=== PATIENT | female | born 1985 | race Caucasian/White ===

== ENCOUNTER → 2020-05-18 | Outpatient (CLI) | payer OTHER ==
[~2020-05-18] MED LIST: BUPRENORPHIN-N1 EACH PO; CELEXA40 MG PO; CLARITIN10 M2 PO; FAMOTIDINE20 MG PO; HYDROXYZINE HCL25 MG PO; KEFLEX CAP 250250 MG PO; KEPPRA1000 MG PO; PEPCID40 MG PO; PHENERGAN 12.12.5 M1 PO; PHENERGAN 25 MG25 M1 PO; PREDNISONE20 MG PO
[2020-05-18 14:05] LABS: HEMOGLOBIN 15.2 gm/dl (12.3-15.3); RED BLOOD COUNT 5.19 M/UL (4.00-5.10); WHITE BLOOD COUNT 7.8 K/UL (4.5-11.0)
[2020-05-18 14:46] LABS: BUN/CREATININE RATIO 12 (0-10)
== END ==
LOC: OPSV2 12:30
PROVIDERS: Surgery
DX: Z01.818 Encounter for other preprocedural examination (principal); R94.31 Abnormal electrocardiogram [ECG] [EKG]
CPT/HCPCS: 71046; 80053; 81001; 85025; 85610; 85730; 86850; 86900; 86901; 93005

== ENCOUNTER → 2020-05-19 | Day surgery (SDC) | payer OTHER | END | disposition home or self-care (01) | LOC: OR 06:09 | PROVIDERS: Surgery | PROC: 00HE0MZ Insertion of Neurostimulator Lead into Cranial Nerve, Open Approach (ICD-10-PCS; principal; 2020-05-19 07:30) | DX: G40.909 Epilepsy, unspecified, not intractable, without status epilepticus (principal); K21.9 Gastro-esophageal reflux disease without esophagitis; E78.5 Hyperlipidemia, unspecified; K76.0 Fatty (change of) liver, not elsewhere classified; E11.9 Type 2 diabetes mellitus without complications; F41.9 Anxiety disorder, unspecified; E66.01 Morbid (severe) obesity due to excess calories; Z88.6 Allergy status to analgesic agent; Z86.711 Personal history of pulmonary embolism; Z79.891 Long term (current) use of opiate analgesic; Z79.899 Other long term (current) drug therapy; Z20.822 Contact with and (suspected) exposure to COVID-19; Z88.8 Allergy status to other drugs, medicaments and biological substances; Z91.018 Allergy to other foods | CPT/HCPCS: 82962; 83036; C1767; C1778; J0690; J1580; J2001; J2250; J2405; J2704; J2710; J3010; J7120 ==

== ENCOUNTER → 2020-07-07 | Outpatient (CLI) | payer OTHER | LOC: WCC 13:30 | DX: T81.31XA Disruption of external operation (surgical) wound, not elsewhere classified, initial encounter (principal); E11.9 Type 2 diabetes mellitus without complications; G40.909 Epilepsy, unspecified, not intractable, without status epilepticus; F41.9 Anxiety disorder, unspecified | CPT/HCPCS: 97605 ==

== ENCOUNTER → 2020-07-18 | Outpatient (CLI) | payer OTHER | LOC: WCC 15:08 | DX: T81.31XD Disruption of external operation (surgical) wound, not elsewhere classified, subsequent encounter (principal); L08.9 Local infection of the skin and subcutaneous tissue, unspecified; G40.419 Other generalized epilepsy and epileptic syndromes, intractable, without status epilepticus; E11.628 Type 2 diabetes mellitus with other skin complications; F42.4 Excoriation (skin-picking) disorder; Z96.82 Presence of neurostimulator | CPT/HCPCS: G0463 ==

== ENCOUNTER → 2020-07-25 | Outpatient (CLI) | payer OTHER | LOC: WCC 15:12 | DX: E66.01 Morbid (severe) obesity due to excess calories (principal); E11.628 Type 2 diabetes mellitus with other skin complications; F42.4 Excoriation (skin-picking) disorder; F42.9 Obsessive-compulsive disorder, unspecified; L08.9 Local infection of the skin and subcutaneous tissue, unspecified; Z96.82 Presence of neurostimulator; G40.419 Other generalized epilepsy and epileptic syndromes, intractable, without status epilepticus | CPT/HCPCS: G0463 ==

== ENCOUNTER 2021-11-16 16:56 | Observation (INO) | payer OTHER ==
[~2021-11-16] VITALS: Ht 167.6 cm; Wt 133.4 kg
[~2021-11-16 16:56] MED LIST changes: -KEPPRA1000 MG PO; +KEPPRA750 MG PO
[2021-11-16 17:43] LABS: HEMOGLOBIN 13.9 gm/dl (12.3-15.3); RED BLOOD COUNT 4.52 M/UL (4.00-5.10); WHITE BLOOD COUNT 7.9 K/UL (4.5-11.0)
[2021-11-16 18:04] LABS: BUN/CREATININE RATIO 12 (0-10)
[2021-11-17 05:09] LABS: HEMOGLOBIN 13.3 gm/dl (12.3-15.3); RED BLOOD COUNT 4.39 M/UL (4.00-5.10); WHITE BLOOD COUNT 7.1 K/UL (4.5-11.0)
[2021-11-17 06:15] LABS: BUN/CREATININE RATIO 11 (0-10)
[2021-11-17] MEDS ORDERED: LEVOTHYROXINE25 MCG PO (11:48)
[2021-11-17] MEDS ORDERED: DUPIXENT300 MG/2 M SQ (11:48)
[2021-11-17] MEDS ORDERED: LORATADINE10 MG PO (11:49)
[2021-11-17] MEDS ORDERED: METFORMIN HCL500 MG PO (11:50)
[2021-11-17] MEDS ORDERED: NALOXONE HCL4 MG (11:51)
[2021-11-17] MEDS ORDERED: ACETAMINOPHEN500 MG PO (11:55)
--- NOTE | 2021-11-17 13:39 | NUR ---
PATIENT LYING IN BED. COLOR PALE. PATIENT APPEARS CONFUSED. REORINENTED PER STAFF. VS WNL. NO SEIZURE ACTIVITY NOTED. VS 126/73, 85, 18, 96%. NOTIFIED. ORDER RECEIVED FOR O2 @2L AND STAT ABG'S. BS 155. WCTM.
[2021-11-18 06:55] LABS: HEMOGLOBIN 13.9 gm/dl (12.3-15.3); RED BLOOD COUNT 4.53 M/UL (4.00-5.10); WHITE BLOOD COUNT 6.8 K/UL (4.5-11.0)
[2021-11-18 07:15] LABS: BUN/CREATININE RATIO 8 (0-10)
[2021-11-18] MEDS ORDERED: OMNICEF 300 MG300 MG PO (14:56)
[2021-11-18 15:11] LABS: AMPHETAMINES, URINE Negative ng/mL (Cutoff=1000); BARBITURATE Negative ng/mL (Cutoff=200); BENZODIAZEPINES Negative ng/mL (Cutoff=200); CANNABINOIDS Negative ng/mL (Cutoff=20); COCAINE (METABOLITE) Negative ng/mL (Cutoff=300); CREATININE 72.7 mg/dL (20.0-300.0); MEPERIDINE Negative ng/mL (Cutoff=200); METHADONE Negative ng/mL (Cutoff=300); OPIATES Negative ng/mL (Cutoff=300); PHENCYCLIDINE Negative ng/mL (Cutoff=25); PROPOXYPHENE Negative ng/mL (Cutoff=300)
[2021-11-19 05:13] LABS: HEMOGLOBIN 13.7 gm/dl (12.3-15.3); RED BLOOD COUNT 4.51 M/UL (4.00-5.10); WHITE BLOOD COUNT 6.6 K/UL (4.5-11.0)
[2021-11-19 06:34] LABS: BUN/CREATININE RATIO 6 (0-10)
[2021-11-19] MEDS ORDERED: PYRIDIUM200 MG PO (13:11)
[2021-11-19] MEDS ORDERED: PHENERGAN 25 MG25 M1 PO (13:11)
[2021-11-19] MEDS ORDERED: PROTONIX 40 MG40 M1 PO (13:11)
[2021-11-19] MEDS ORDERED: FUROSEMIDE20 MG PO (13:47)
[2021-11-19] MEDS ORDERED: KEPPRA750 MG PO (13:47)
== END 2021-11-19 17:10 | disposition home or self-care (01) ==
LOC: ER1 16:56 → CDU 22:27 → MED SURG 4 22:27
PROVIDERS: Family Medicine; Physician Assistant; ADMIT Internal Medicine
DX: G40.409 Other generalized epilepsy and epileptic syndromes, not intractable, without status epilepticus (principal); N30.01 Acute cystitis with hematuria; E11.65 Type 2 diabetes mellitus with hyperglycemia; K80.20 Calculus of gallbladder without cholecystitis without obstruction; K21.9 Gastro-esophageal reflux disease without esophagitis; F41.1 Generalized anxiety disorder; E03.9 Hypothyroidism, unspecified; R60.0 Localized edema; F11.20 Opioid dependence, uncomplicated; G89.4 Chronic pain syndrome; E66.01 Morbid (severe) obesity due to excess calories; Z68.42 Body mass index [BMI] 45.0-49.9, adult; Z91.14 Patient's other noncompliance with medication regimen; Z86.39 Personal history of other endocrine, nutritional and metabolic disease; Z88.6 Allergy status to analgesic agent; Z88.8 Allergy status to other drugs, medicaments and biological substances; Z91.018 Allergy to other foods; Z79.84 Long term (current) use of oral hypoglycemic drugs; Z79.890 Hormone replacement therapy; Z79.899 Other long term (current) drug therapy
CPT/HCPCS: 36415; 36600; 70450; 71045; 76705; 80048; 80053; 80307; 81001; 82550; 82553; 82803; 82962; 83036; 83605; 83690; 84439; 84443; 84484; 85025; 85027; 87086; 93005; 93970; 96361; 96372; 96374; 96375; 96376; 97116; 97161; 99285; G0378; J0696; J1650; J1940; J1953; J2550; Q9967